=== PATIENT | female | born 1965 | race Two or more races ===

== ENCOUNTER 2019-05-30 17:31 | Inpatient (IN) | payer OTHER, MEDICAID ==
[~2019-05-30] VITALS: Ht 147.3 cm; Wt 51.7 kg
--- NOTE | 2019-05-30 17:35 | NUR ---
bib39, from shelter, per report she ambulated to the bathroom and had a syncopal episode, and bp checked 237/120 BS112, last well known 1700. On 02 @ 2lpm via nc, breathing evenly and unlabored. Connected to the monitor and pulse ox. kept comfortable, will continue to monitor accordingly.
--- NOTE | 2019-05-30 17:49 | NUR ---
code stroke activated:see code stroke form.
[2019-05-30] MEDS ORDERED: IOHEXOL-350 100 ML VIAL IV ONE (17:52)
[2019-05-30 18:05] LABS: BASOPHILS # (AUTO) 0.1 /CMM (0.0-0.2); BASOPHILS % (AUTO) 0.8 % (0.0-2.0); HEMATOCRIT 43 % (33-45); HEMOGLOBIN 13.9 g/dL (11.5-14.8); LYMPHOCYTES # (AUTO) 1.8 /CMM (0.8-4.8); LYMPHOCYTES % (AUTO) 19.2 % (20.0-44.0); MEAN CORPUSCULAR HGB CONC 33 g/dl (31.0-36.0); MEAN CORPUSCULAR VOLUME 82 fL (82-100); MONOCYTES # (AUTO) 0.6 /CMM (0.1-1.30); MONOCYTES % (AUTO) 6.8 % (2.0-12.0); NEUTROPHILS # (AUTO) 6.8 /CMM (1.8-8.9); NEUTROPHILS % (AUTO) 72.2 % (43.0-81.0); PLATELET COUNT (AUTO) 444 /CMM (150-450); RED BLOOD CELL COUNT(AUTO) 5.18 MIL/uL (4.0-5.2); WHITE BLOOD COUNT (AUTO) 9.3 K/uL (4.3-11.0)
[2019-05-30 18:17] LABS: CALCIUM, SERUM 9.2 mg/dL (8.5-10.1); CARBON DIOXIDE 28 mmol/L (21-32); CHLORIDE 102 mmol/L (98-107); CREATININE 0.7 mg/dL (0.6-1.3); GLUCOSE 108 mg/dL (74-106); SODIUM SERUM 141 mmol/L (136-145); UREA NITROGEN, BLOOD 11 mg/dL (7-18)
[2019-05-30 18:20] LABS: POTASSIUM 2.8 mmol/L (3.5-5.1)
[2019-05-30] MEDS ORDERED: NICARDIPINE HCL 20 MG in IV D5W 192 ML IV PRN (18:30)
[2019-05-30] MEDS ORDERED: NICARDIPINE IN DEXTROSE,ISO-OS 200 ML IV ONE (18:31)
[2019-05-30] MEDS ORDERED: NICARDIPINE IN NACL, ISO-OSM 200 ML IV PRN (19:00)
--- NOTE | 2019-05-30 19:00 | NUR ---
CALLED NURSING SUP FOR ICU BED.
[2019-05-30 19:15] LABS: CHOLESTEROL 274 mg/dL (<200); HDL CHOLESTEROL 44 mg/dL (40-60); LDL 186 mg/dL (0-99); TRIGLYCERIDES 206 mg/dL (30-150)
--- NOTE | 2019-05-30 19:21 | NUR ---
report given to Alejandro MORA for cruz.
--- NOTE | 2019-05-30 19:39 | NUR ---
TOOK OVER PT CARE. PT AAOX4. DENIES PAIN, RR EVEN AND UNLABORED. PT STATES SHE DOES NOT TAKE ANY MEDICATION AT HOME. WILL CONTINUE TO MONITOR.
[2019-05-30] MEDS ORDERED: NIFEdipine XL (30MG) 30 MG TAB PO SCH (20:00)
--- NOTE | 2019-05-30 20:02 | NUR ---
NICARDIPINE LOWERED TO 3MG/HR VSS.
[2019-05-30] MEDS ORDERED: POTASSIUM CL. PREMIX PERIPHER. 50 ML ONE ×2 (20:04→21:25)
[2019-05-30] MEDS: POTASSIUM CL. PREMIX PERIPHER. 50 ML IV SCH ×3 (20:09→23:09)
--- NOTE | 2019-05-30 20:24 | NUR ---
ER DOC ON PHONE WITH HOSPITALIST
--- NOTE | 2019-05-30 20:42 | NUR ---
CALLED SUP TO DOWNGRADE PT FRO ICU TO TELE. WAITING FOR BED
--- NOTE | 2019-05-30 20:58 | NUR ---
Patient is resting comfortably in bed with eyes closed. Easily aroused. VSS.
[2019-05-30] MEDS ORDERED: ZOLPIDEM TARTRATE 5 MG TABLET PO PRN (21:00)
[2019-05-30] MEDS ORDERED: MAG HYDROX/AL HYDROX/SIMETH 30 ML UDC PO PRN (21:00)
[2019-05-30] MEDS ORDERED: Z GUARD REMEDY 2 OZ OINT TP PRN (21:00)
[2019-05-30] MEDS ORDERED: ACETAMINOPHEN 325 MG TABLET PO PRN (21:00)
[2019-05-30] MEDS ORDERED: hydrALAZINE HCL 25 MG TABLET PO PRN (21:00)
[2019-05-30] MEDS ORDERED: ONDANSETRON HCL/PF 4 MG/2 ML VIAL IVP PRN (21:00)
[2019-05-30] MEDS ORDERED: HYDROCODONE/APAP 5/325MG 1 EACH TABLET PO PRN (21:00)
[2019-05-30] MEDS ORDERED: MAGNESIUM HYDROXIDE 30 ML UDC PO PRN (21:00)
[2019-05-30] MEDS ORDERED: POTASSIUM CHLORIDE 20 MEQ TAB.PRT.SR PO ONE (21:30)
--- NOTE | 2019-05-30 21:43 | NUR ---
REPORT GIVEN TO CA MORA FOR KATHYA
--- NOTE | 2019-05-30 21:52 | NUR ---
PT TRANSFERED PER ACLS PROTOCOL.
--- NOTE | 2019-05-30 21:55 | NUR ---
RN OPENING NOTES: Pt transferred from ER to room 109 at 2150. Accompanied by SENIOR PRODUCT DEVELOPMENT ENGINEER and 2 police officers. [employer] officers will stay at bedside. Admit dx of hypertensive emergency. Dr. Shoemaker admitting Pt on 2L/min NC tolerating well. No respiratory distress or SOB noted. Has IV site on the left AC patent and flushed. Dressing c/d/i. Upon assessment, skin intact. Vital signs: BP 147/95 P 95 RR 18 T97.5 and O2 99% on 2L/min NC. On regular diet. Pt cleaned and resting in bed. No reports of pain now. Will continue o monitor.
[2019-05-30] MEDS ORDERED: POTASSIUM CL. PREMIX PERIPHER. 200 ML ONE (22:46)
[2019-05-31] VITALS (8 sets, daily range): BP systolic 110–150; BP diastolic 62–80
--- NOTE | 2019-05-31 | NUR ---
RN NOTES: KDur not administered. ER documentation states order for KDur D/C'd and to continue with K IV.
[2019-05-31] MEDS: POTASSIUM CL. PREMIX PERIPHER. 50 ML IV SCH ×3 (00:05→02:05)
[2019-05-31 06:30] LABS: BASOPHILS # (AUTO) 0.1 /CMM (0.0-0.2); BASOPHILS % (AUTO) 0.5 % (0.0-2.0); EOSINOPHILS % (AUTO) 0.4 % (0.0-6.0); HEMATOCRIT 41 % (33-45); HEMOGLOBIN 13.4 g/dL (11.5-14.8); LYMPHOCYTES # (AUTO) 1.3 /CMM (0.8-4.8); LYMPHOCYTES % (AUTO) 10.8 % (20.0-44.0); MEAN CORPUSCULAR HGB CONC 32 g/dl (31.0-36.0); MEAN CORPUSCULAR VOLUME 83 fL (82-100); MONOCYTES # (AUTO) 0.5 /CMM (0.1-1.30); MONOCYTES % (AUTO) 4.3 % (2.0-12.0); NEUTROPHILS # (AUTO) 10.2 /CMM (1.8-8.9); PLATELET COUNT (AUTO) 374 /CMM (150-450); RED BLOOD CELL COUNT(AUTO) 4.99 MIL/uL (4.0-5.2); WHITE BLOOD COUNT (AUTO) 12.2 K/uL (4.3-11.0)
--- NOTE | 2019-05-31 06:48 | NUR ---
RN CLOSING NOTES: Pt resting in bed. On 2L/min NC tolerating well. No SOB or respiratory distress noted during shift. On tele monitor showing SR. Police officers at bedside. No acute changes noted during shift. IV site on left AC patent and flushing. Received 40 Meq of K during shift and 20 Meq in the ER for low K. All medications administered as ordered. Safety measures in place. Bed in lowest and locked position, side rails up x2, call light within reach. Will endorse to AM nurse for KATHYA.
[2019-05-31 06:53] LABS: CALCIUM, SERUM 9.2 mg/dL (8.5-10.1); CREATININE 0.9 mg/dL (0.6-1.3); MAGNESIUM 2.2 mg/dL (1.8-2.4); PHOSPHORUS 3.2 mg/dL (2.5-4.9)
--- NOTE | 2019-05-31 07:54 | NUR ---
RN OPENING NOTES RECEIVED PATIENT RESTING IN BED, ON 2L O2 VIA NC TOLERATING WELL, NO SOB OR RESPIRATORY DISTRESS IS NOTED AT THIS TIME. PT IS ON TELE MONITOR WITH SR, CHUTE TENDER AT BEDSIDE, PATIENT IS COOPERATIVE. IV ON LEFT AC INTACT, PATENT AND FLUSHED WELL. SAFETY MAINTAINED, CALL LIGHT WITHIN REACH, WILL CONTINUE TO MONITOR CLOSELY.
[2019-05-31] MEDS: ASPIRIN EC 81 MG TABLET.DR PO SCH (16:28)
--- NOTE | 2019-05-31 16:48 | NUR ---
RN NOTE PATIENT REFUSED DVT PROPHYLAXIS PUMPS. EDUCATED PATIENT ON BENEFITS AND THE REASON IT IS RECOMMENDED, PT STILL DECIDED TO REFUSE. SAFETY MAINTAINED, CALL LIGHT WITHIN REACH.
--- NOTE | 2019-05-31 19:31 | NUR ---
RN CLOSING NOTES PATIENT IN STABLE CONDITION. NO ACUTE CHANGES TO PATIENT CONDITION DURING MY SHIFT. NIHSS WAS PERFORMED, PT SCORED A 3, MD IS AWARE, ORDERED ASPIRIN AND STATIN. ALL SCHEDULED MEDS GIVEN ORDERED. PT SAFETY MAINTAINED, CALL LIGHT WITHIN REACH. ENDORSED TO PM NURSE TO CONTINUE CARE.
--- NOTE | 2019-05-31 19:40 | NUR ---
STRATEGY ASSOCIATE NOTES, RECEIVED PATIENT IN BED, FALLING ASLEEP AT THIS TIME, ON 2L O2 VIA NC TOLERATING WELL, WITH OPTIMAL O2 SAT LEVEL, NO SOB/ ACUTE RESPIRATORY DISTRESS NOTED AT THIS TIME, NSR ON TELE MONITOR, IV ON LEFT AC PATENT AND INTACT, ALL SAFETY MEASURES IN PLACED, CALL LIGHT WITHIN REACH, PLANTING MATERIAL CARRIER IN DUTY, WILL CONTINUE TO MONITOR CLOSELY.
[2019-05-31] MEDS ORDERED: SIMVASTATIN 20 MG TABLET PO SCH (22:00)
--- NOTE | 2019-05-31 23:00 | NUR ---
RN NOTES, PATIENT IS RELEASED FROM [employer], SHE IS NOT UNDER THEIR CUSTODY ANYMORE, RELEASE PAPER GIVEN TO HER BY POLICE AND ONE COPY IN CHART, [employer] RELEASED HER BELONGINGS TO HER AND SHE PREFERRED TO KEEP BELONGINGS WITH HER, HOSPITAL HAS NO BELONGINGS FROM HER.
[2019-06-01] VITALS: BP 114/67
[2019-06-01 04:00] VITALS: BP 135/67
[2019-06-01 06:54] LABS: BASOPHILS # (AUTO) 0.1 /CMM (0.0-0.2); BASOPHILS % (AUTO) 1.5 % (0.0-2.0); EOSINOPHILS % (AUTO) 6.1 % (0.0-6.0); HEMATOCRIT 39 % (33-45); HEMOGLOBIN 12.9 g/dL (11.5-14.8); LYMPHOCYTES # (AUTO) 2.7 /CMM (0.8-4.8); LYMPHOCYTES % (AUTO) 33.4 % (20.0-44.0); MEAN CORPUSCULAR HGB CONC 33 g/dl (31.0-36.0); MEAN CORPUSCULAR VOLUME 83 fL (82-100); MONOCYTES # (AUTO) 0.6 /CMM (0.1-1.30); NEUTROPHILS # (AUTO) 4.1 /CMM (1.8-8.9); PLATELET COUNT (AUTO) 380 /CMM (150-450); WHITE BLOOD COUNT (AUTO) 8.1 K/uL (4.3-11.0)
[2019-06-01 07:02] LABS: CALCIUM, SERUM 9.2 mg/dL (8.5-10.1); CREATININE 0.8 mg/dL (0.6-1.3); MAGNESIUM 2.2 mg/dL (1.8-2.4); PHOSPHORUS 3.7 mg/dL (2.5-4.9); POTASSIUM 3.6 mmol/L (3.5-5.1)
--- NOTE | 2019-06-01 07:19 | NUR ---
RIPRAP PLACER NOTES, PATIENT IN BED, ASLEEP AT THIS TIME, BUT AROUSES TO VERBAL STIMULI, ON 2L O2 VIA NC TOLERATING WELL, WITH OPTIMAL O2 SAT LEVEL, NO SOB/ ACUTE RESPIRATORY DISTRESS NOTED AT THIS TIME, NO SIGNIFICANT CHANGE IN CONDITION DURING THE NIGHT, ALL SAFETY MEASURES IN PLACED, CALL LIGHT WITHIN REACH, WILL ENDORSE CONTINUITY OF CARE TO ONCOMING NURSE.
[2019-06-01 07:30] VITALS: BP 116/71
--- NOTE | 2019-06-01 07:54 | NUR ---
RNOPENING NOTES PATIENT IN STABLE CONDITION, RESTING IN BED BUT IS EASILY AROUSABLE. A/O X4, ON TELE MONITOR WITH SR NOTE. ON ROOM AIR SATURATING WELL, NO SIGNS OF RESPIRATORY DISTRESS NOTED. NO SOB NOTED. PATIENT HAS PASSED THE SWALLOW EVAL, ABLE TO TAKE PO MEDS. IV ON LEFT AC #18 ON SL, INTACT, PATENT AND FLUSHED WELL. PATIENT SAFETY IS MAINTAINED, CALL LIGHT WITHIN REACH, WILL CONTINUE TO MONITOR CLOSELY AND FOLLOW THE NIHSS PROTOCOL.
[2019-06-01 08:00] VITALS: BP 116/71
[2019-06-01] MEDS: ASPIRIN EC 81 MG TABLET.DR PO SCH (09:02)
--- NOTE | 2019-06-01 11:10 | NUR ---
Social service consult by MD for possible stroke. Per MD notes, pt is a 54 y/o female who presented to the ER on 05/30/19 from the longterm because she had a syncopal episode, was found in the restroom. Pt was brought in by [employer] officers. CHAPERONE met with the pt bedside. CHAPERONE introduced self and purpose of the visit. Pt is alert and oriented x 4. Pt reports she rents a room in [facility] located at [address] [place] [address]. Pt did not give an emergency contact lens manufacturer. Pt is ambulatory with a walker. Pt reports, she has been having a good appetite since the last two days. Pt is independent with her ADLS. Pt drives herself to doctor appointments. Pt denies any SI/HI and visual/auditory hallucinations at this time. .Pt denies any history of mental illness. CHAPERONE provided pt with active listening, supportive counselling and positive coping skills. PHQ-9 intervention was completed. No other social service needs are requested at this time. Pt will require transportation upon discharge. CHAPERONE updated pt's RN Brandt regarding pt's discharge plan. CHAPERONE is available, if needed.
--- NOTE | 2019-06-01 12:43 | NUR ---
patient awaits neurology clearance for discharge.primary rn ff. up with neuro,per dr. washburn will see patient after clinic hours.md aware,cm and nursing ssup aware of delay in discharge. will continue to followup.
[2019-06-01 16:00] VITALS: BP 121/82
--- NOTE | 2019-06-01 18:48 | NUR ---
PATIENT WAS CLEARED BY NEUROLOGIST TO GO HOME. IN STABLE CONDITION, NO ACUTE CHANGES TO PATIENT CONDITION DURING MY SHIFT. PATIENT WAS PROVIDED A WALKER PER PT RECOMMENDATION. WHEELED OUT OF THE HOSPITAL IN A WHEELCHAIR, PICKED UP BY [employer]. [employer]I VOUCHER PROVIDED TO THE PT. PATIENT IS GOING HOME. ALL NEEDS MET, DISCHARGE PAPERWORK COMPLETE AND SIGNED BY THE PATIENT, BELONGING MARIA DOLORES AND RETURNED TO THE PATIENT. SAFETY MAINTAINED, NO COMPLAINTS FROM PATIENT.
== END 2019-06-01 18:50 | disposition home or self-care (01) | DRG 305 ==
LOC: ER 17:35 → ICU 19:55 → TELE1 20:59 → MEDSG1 06-01 10:21
PROVIDERS: ADMIT Family Medicine; ATTEND Student in an Organized Health Care Education/Training Program
DX: I16.1 Hypertensive emergency (principal); G93.40 Encephalopathy, unspecified; E87.6 Hypokalemia; R73.9 Hyperglycemia, unspecified; D72.829 Elevated white blood cell count, unspecified; E78.5 Hyperlipidemia, unspecified
CPT/HCPCS: 36415; 70450-TC; 70496-TC; 70498-TC; 71045-TC; 72125-TC; 80048-TC; 80061-TC; 80305; 82962-TC; 83735-TC; 84100-TC; 84484-TC; 85025-TC; 85730-TC; 87081-TC; 93307-TC; 93880-TC; 97116-TC; 97530-TC; G0378; G0480; J3480; J7060; Q9967